=== PATIENT | female | born 1950 | race Caucasian/White ===

== ENCOUNTER 2016-11-03 19:17 | Emergency (ER) | payer OTHER ==
[2016-11-03 19:35] VITALS: BP 145/85
== END 2016-11-03 19:29 | disposition left against medical advice (07) ==
LOC: UCCORT 19:17
DX: M79.644 Pain in right finger(s) (principal); Z53.21 Procedure and treatment not carried out due to patient leaving prior to being seen by health care provider

== ENCOUNTER 2018-06-26 07:40 | Emergency (ER) | payer BC, MEDICARE ==
[2018-06-26 08:02] VITALS: BP 139/75
--- NOTE | 2018-06-26 08:17 | UC ---
Throat Pain/Nasal Beau HPI - HPI Summary HPI Summary: nasal congestion , cough x 2 days + sore throat, pnd, productive cough with yellow sputum no feve, + chills - History of Current Complaint Chief Complaint: UCGeneralIllness Stated Complaint: HEADACHE,COUGH,FEVER Time Seen by Provider: 06/26/18 07:44 Hx Obtained From: Patient ?: No Onset/Duration: Gradual Onset, Lasting Days - 2, Still Present Pain Intensity: 0 Cough: Productive Associated Signs & Symptoms: Positive: Nasal Discharge. Negative: Wheezing, Hoarseness, Sinus Discomfort, Fever, Vomiting, Rash - Allergies/Home Medications Allergies/Adverse Reactions: Allergies Allergy/AdvReac Type Severity Reaction Status Date / Time No Known Allergies Allergy Verified 06/26/18 08:00 Home Medications: Home Medications Aspirin 81 mg CHEW TAB* [Aspirin Low Dose TAB*] 81 mg PO DAILY 06/26/18 [ History Confirmed 06/26/18] Atorvastatin* [Lipitor*] 20 mg PO DAILY 06/26/18 [History Confirmed 06/26/18] PMH/Surg Hx/FS Hx/Imm Hx Previously Healthy: Yes - Surgical History Surgical History: None - Family History Known Family History: Negative: Diabetes - Social History Alcohol Use: None Substance Use Type: None Smoking Status (MU): Never Smoked Tobacco Review of Systems All Other Systems Reviewed And Are Negative: Yes Constitutional: Positive: Chills, Fatigue Skin: Positive: Negative Eyes: Positive: Negative ENT: Positive: Nasal Discharge Respiratory: Positive: Cough Cardiovascular: Positive: Negative Is Patient Immunocompromised?: No Physical Exam Triage Information Reviewed: Yes Appearance: Well-Appearing, No Pain Distress, Well-Nourished Vital Signs: Initial Vital Signs Temp 100.6 F 06/26/18 07:59 Pulse 102 06/26/18 07:59 Resp 18 06/26/18 07:59 BP 139/75 06/26/18 07:59 Pulse Ox 97 06/26/18 07:59 Vital Signs Reviewed: Yes Eye Exam: Normal Eyes: Positive: Conjunctiva Clear ENT: Positive: Normal ENT inspection, Hearing grossly normal, Pharynx normal Neck: Positive: Supple, Nontender, No Lymphadenopathy Respiratory Exam: Normal Respiratory: Positive: Chest non-tender, Lungs clear, Normal breath sounds Cardiovascular: Positive: Pulses Normal, Tachycardia Skin Exam: Normal Throat Pain/Nasal Course/Dx - Differential Dx/Diagnosis Provider Diagnosis: URI (upper respiratory infection) Discharge - Sign-Out/Discharge Documenting (check all that apply): Patient Departure All imaging exams completed and their final reports reviewed: No Studies - Discharge Plan Condition: Stable Disposition: HOME Patient Education Materials: Upper Respiratory Infection (DC) Referrals: David Thomas MD [Primary Care Provider] - If Needed - Billing Disposition and Condition Condition: STABLE Disposition: Home
== END 2018-06-26 08:16 | disposition home or self-care (01) ==
LOC: UCCORT 07:40
DX: J06.9 Acute upper respiratory infection, unspecified (principal); Z79.82 Long term (current) use of aspirin
CPT/HCPCS: 99211; G0463

== ENCOUNTER 2018-11-12 10:06 | Emergency (ER) | payer MEDICARE ==
[2018-11-12 10:24] VITALS: BP 158/78
--- NOTE | 2018-11-12 10:49 | UC ---
Hand/Wrist HPI - HPI Summary HPI Summary: Pt presents with c/o spontaneous onset of bruising to distal, scales, right index finger. Denies injury or strain. Pt just noticed this morning while reaching for carton of eggs in refrigerator. - History Of Current Complaint Chief Complaint: UCGeneralIllness Stated Complaint: RT INDEX FINGER COMPLAINT Time Seen by Provider: 11/12/18 10:35 Hx Obtained From: Patient ?: No Onset/Duration: Sudden Onset, Still Present Severity Currently: None Pain Intensity: 0 Alleviating Factor(s): Nothing Associated Signs And Symptoms: Positive: Bruising Related History: Dominant Hand Right - Allergies/Home Medications Allergies/Adverse Reactions: Allergies Allergy/AdvReac Type Severity Reaction Status Date / Time No Known Allergies Allergy Verified 11/12/18 10:19 Home Medications: Home Medications Alendronate TAB (NF) [Fosamax TAB (NF)] 1 tab DAILY 11/12/18 [History Confirmed 11/12/18] Atenolol TAB* [Tenormin TAB* 25 MG] 1 tab DAILY 11/12/18 [History Confirmed ] PMH/Surg Hx/FS Hx/Imm Hx Previously Healthy: Yes Endocrine History: Dyslipidemia Cardiovascular History: Cardiac Disease, Hypertension - Surgical History Surgical History: None - Family History Known Family History: Negative: Diabetes - Social History Occupation: Retired Lives: With Family Alcohol Use: Daily Alcohol Amount: 4-5 BEERS/DAY Substance Use Type: None Smoking Status (MU): Never Smoked Tobacco Have You Smoked in the Last Year: No - Immunization History Most Recent Tetanus Shot: UTD Vaccination Up to Date: Yes Review of Systems All Other Systems Reviewed And Are Negative: Yes Constitutional: Positive: Negative Skin: Positive: Bruising - right scales, distal, index finger Eyes: Positive: Negative ENT: Positive: Negative Respiratory: Positive: Negative Cardiovascular: Positive: Negative Gastrointestinal: Positive: Negative Genitourinary: Positive: Negative Motor: Positive: Negative Neurovascular: Positive: Negative Musculoskeletal: Positive: Negative Neurological: Positive: Negative Psychological: Positive: Negative Is Patient Immunocompromised?: No Physical Exam Triage Information Reviewed: Yes Appearance: Well-Appearing Vital Signs: Initial Vital Signs Temp 97.8 F 11/12/18 10:20 Pulse 77 11/12/18 10:20 Resp 16 11/12/18 10:20 BP 158/78 11/12/18 10:20 Pulse Ox 100 11/12/18 10:20 Vital Signs Reviewed: Yes Eye Exam: Normal ENT Exam: Normal Dental Exam: Normal Neck exam: Normal Respiratory: Positive: No respiratory distress Musculoskeletal Exam: Normal Neurological Exam: Normal Psychological Exam: Normal Skin Exam: Other - bruising to right index finger, distal and scales Hand/Wrist Course/Dx - Course Course Of Treatment: I disucssed wiht the pt the remote possibility of Achenbachs syndrome and encourage her to f/u with pcp. Pt verbalized understanding and agreed to plan of care - Differential Dx/Diagnosis Differential Diagnosis/HQI/PQRI: Contusion Provider Diagnosis: Superficial bruising of finger Discharge - Sign-Out/Discharge Documenting (check all that apply): Patient Departure All imaging exams completed and their final reports reviewed: No Studies - Discharge Plan Condition: Stable Disposition: HOME Patient Education Materials: Contusion in Adults (ED) Referrals: David Thomas MD [Primary Care Provider] - If Needed - Billing Disposition and Condition Condition: STABLE Disposition: Home
== END 2018-11-12 10:54 | disposition home or self-care (01) ==
LOC: UCCORT 10:06
DX: S60.021A Contusion of right index finger without damage to nail, initial encounter (principal); X58.XXXA Exposure to other specified factors, initial encounter; Y92.9 Unspecified place or not applicable; I11.9 Hypertensive heart disease without heart failure
CPT/HCPCS: 99211; G0463